=== PATIENT | female | born 1950 | race Caucasian/White ===

== ENCOUNTER 2017-09-11 12:19 | Inpatient (IN) ==
[2017-09-11] MEDS ORDERED: Ipratropium/Albuterol Neb 3 ML IH ONE (12:35)
[2017-09-11] MEDS ORDERED: Levofloxacin 750 MG/150 ML 750 MG/150 ML BAG IVPB ONE (12:35)
[2017-09-11] MEDS ORDERED: methylPREDNISolone 125 MG/2 ML VIAL IVP ONE (12:35)
--- NOTE | 2017-09-11 12:37 | Emergency Department Note ---
Disposition Clinical Impression: Hypoxia, Elevated lactic acid level, Elevated brain natriuretic peptide (BNP) level Asthma with exacerbation Qualifiers: Asthma severity: unspecified severity Asthma persistence: unspecified Qualified Code(s): J45.901 - Unspecified asthma with (acute) exacerbation Disposition: Admitted As Inpatient Condition: Fair SOB HPI - General Chief Complaint: ED Shortness of Breath/Dyspnea Stated Complaint: "cold" Time Seen by Provider: 09/11/17 12:25 Source: patient, family Limitations: no limitations Nursing Notes Reviewed: Yes Vital Signs Reviewed: Yes - History of Present Illness 66-year-old female past medical history of smoking, asthma, dependence on oxygen via nasal cannula, presents to the emergency department with 3 day history of cough and congestion. Patient states that she feels short of breath. She denies any fever, chest pain, pressure, tightness, hemoptysis, unilateral leg swelling, prior history of DVTs. - Related Data Allergies Allergy/AdvReac Type Severity Reaction Status Date / Time cephalexin [From Keflex] Allergy Anaphylaxis Verified 09/11/17 13:06 All systems ED: reviewed and negative except as stated. Review of Systems: As Per HPI ENT ED: Reports: congestion Cardiovascular: Denies: chest pain Respiratory: Reports: cough, dyspnea, wheezes. 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 Head: autraumatic, EOMI, no conjuncitval pallor, no scleral icterus, Mouth: oral mucous membranes moist Neck: neck soft, trachea midline Chest:: Equal chest wall rise Lungs: Diffuse wheezes and rhonchi throughout Heart: normal heart sounds, tachycardic and normal rhythm, Abdomen: soft, non-tender, no rigidity, no guarding, no rebdound tenderness Lower Extremities: no pedal edema, calves non-tender Integumentary: Skin warm, dry, and intact Neuro: Alert Psych: normal affect, normal mood - General Limitations: no limitations General appearance: alert, in no apparent distress Course Vital Signs Temperature 98.0 F 09/11/17 12:22 Pulse Rate 113 09/11/17 12:22 Respiratory Rate 22 09/11/17 12:22 Blood Pressure 158/84 09/11/17 12:22 O2 Sat by Pulse Oximetry 88 09/11/17 12:22 Temperature 98.0 F 09/11/17 12:22 Pulse Rate 108 09/11/17 15:35 Respiratory Rate 24 09/11/17 15:35 Blood Pressure 110/63 09/11/17 15:35 O2 Sat by Pulse Oximetry 93 09/11/17 15:35 Oxygen Delivery Oxygen Delivery Nasal Cannula Shortness of Breath/Dyspnea - MDM Narrative Medical decision making narrative: 66-year-old female presents to the emergency department with concern for asthma/ COPD exacerbation versus pneumonia. The patient is currently on 3 L of nasal cannula as she is at home. There are times where she is very dyspneic in conversation where her oxygen saturation stops down to the low 80s this patient steroids, DuoNeb, obtaining chest x-ray, EKG, BNP, troponin, CBC, BMP, blood cultures will be obtained as well as a lactate as this patient is tachycardic, hypoxic, tachypnic. I do not suspect a pulmonary embolus at this time as patient is not having chest pain, denies any hemoptysis, leg swelling, and has no previous history of blood clots. Findings were chest x-ray did not reveal pneumonia. However, due to the patient 's wet cough and hypoxia, history COPD, elevated leukocytosis, I have given her Levaquin as I do suspect that there may be a bacterial etiology. Patient has a troponin within normal limits. Her electrocardiogram does not reveal any ischemic ST changes. Patient does have an elevated BNP. Patient stated that she wanted to go home. However, patient was very dyspneic in conversation with oxygen saturation fluctuated between the high to low 80s on 3 L via nasal cannula. I think this patient should be admitted to the hospital for asthma/COPD exacerbation and bronchitis with hypoxia. After a discussion with family and patient bedside, she agreed to be admitted. I discussed the plan of admission with Dr. Cancino and he agreed to admit the patient. Chest X-Ray 09/11/17 12:35 IMPRESSION: Findings suggesting COPD with acute versus chronic bronchitis/bronchiolitis. No lobar pneumonia. D/ / 09/11/2017 13:37:40 Khris Carreno MD / Manasa Lopez Interpreting Provider: Khris Carreno MD Vital Signs Temperature 98.0 F 09/11/17 12:22 Pulse Rate 113 09/11/17 12:22 Respiratory Rate 22 09/11/17 12:22 Blood Pressure 158/84 09/11/17 12:22 O2 Sat by Pulse Oximetry 88 09/11/17 12:22 Temperature 98.0 F 09/11/17 12:22 Pulse Rate 108 09/11/17 15:35 Respiratory Rate 24 09/11/17 15:35 Blood Pressure 110/63 09/11/17 15:35 O2 Sat by Pulse Oximetry 93 09/11/17 15:35 Oxygen Delivery Oxygen Delivery Nasal Cannula - Lab Data Result diagrams: 09/11/17 12:47 09/11/17 12:47 Lab Results 09/11/17 09/11/17 09/11/17 Range/Units 12:47 12:47 12:47 WBC 13.4 H (4.3-11.1) K/mcL RBC 4.74 (3.82-4.97) M/mcL Hgb 13.5 (11.5-15.4) g/dL Hct 42.3 (35.3-44.9) % MCV 89.2 (83.0-100.0) fL MCH 28.5 (28.0-33.3) pg MCHC 31.9 (31.6-35.5) g/dL RDW 13.8 (11.5-14.5) % Plt Count 159 (140-400) K/mcL MPV 11.1 (9.4-12.4) fL Immature Gran % 0.4 (0-4) % Seg Neutrophils % 85.0 % Lymphocytes % 6.3 % Monocytes % 7.9 % Eosinophils % 0.1 % Basophils % 0.3 % Neutrophils # 11.4 H (1.6-8.9) K/mcL Lymphocytes # 0.8 (0.6-4.6) K/mcL Monocytes # 1.1 (0.0-1.3) K/mcL Eosinophils # 0.0 (0.0-0.6) K/mcL Basophils # 0.0 (0.0-0.2) K/mcL Sodium 136 (136-145) mEq/L Potassium 4.0 (3.5-4.5) mEq/L Chloride 101 (98-109) mEq/L Carbon Dioxide 25 (19-29) mEq/L BUN 11 (7-20) mg/dL Creatinine 0.77 (0.57-1.11) mg/dL Est GFR ( Amer) > 60 (> 60) Est GFR (Non-Af Amer) > 60 (> 60) BUN/Creatinine Ratio 14 (6-26) Glucose 125 H (70-99) mg/dL Calculated Osmolality 283 (280-300) Lactic Acid 2.2 (0.5-2.2) mmol/L Calcium 9.1 (8.6-10.8) mg/dL Troponin I (0-0.03) ng/mL B-Natriuretic Peptide (0-100) pg/mL 09/11/17 09/11/17 09/11/17 Range/Units 12:47 12:47 14:37 WBC (4.3-11.1) K/mcL RBC (3.82-4.97) M/mcL Hgb (11.5-15.4) g/dL Hct (35.3-44.9) % MCV (83.0-100.0) fL MCH (28.0-33.3) pg MCHC (31.6-35.5) g/dL RDW (11.5-14.5) % Plt Count (140-400) K/mcL MPV (9.4-12.4) fL Immature Gran % (0-4) % Seg Neutrophils % % Lymphocytes % % Monocytes % % Eosinophils % % Basophils % % Neutrophils # (1.6-8.9) K/mcL Lymphocytes # (0.6-4.6) K/mcL Monocytes # (0.0-1.3) K/mcL Eosinophils # (0.0-0.6) K/mcL Basophils # (0.0-0.2) K/mcL Sodium (136-145) mEq/L Potassium (3.5-4.5) mEq/L Chloride (98-109) mEq/L Carbon Dioxide (19-29) mEq/L BUN (7-20) mg/dL Creatinine (0.57-1.11) mg/dL Est GFR ( Amer) (> 60) Est GFR (Non-Af Amer) (> 60) BUN/Creatinine Ratio (6-26) Glucose (70-99) mg/dL Calculated Osmolality (280-300) Lactic Acid 3.0 H (0.5-2.2) mmol/L Calcium (8.6-10.8) mg/dL Troponin I 0.02 (0-0.03) ng/mL B-Natriuretic Peptide 133 H (0-100) pg/mL - EKG Data EKG attestation: Yes I reviewed and interpreted this EKG. EKG results narrative: 12:35 Ventricular rate 114 beats per minute, IL interval 120 ms, QRS duration 109 ms, QT 312 ms, QTC 380 ms, no masses. Sinus tachycardia with a ventricular rate of 114 bpm. There is no evidence of any ischemic ST changes noted on this electrocardiogram.
--- NOTE | 2017-09-11 12:38 | Emergency Department Note ---
START Narrative - START START: I examined this patient and my medical decision-making was reviewed with the Resident Physician. I agree with the documented findings, disposition and treatment plan as described except to the extent set forth below. 66 year old female with HX of COPD/asthma and needs oxygen supplemenaiton at home about 2-3LNC and has been wearing it continously and has been experincing increased dyspnea especially with exertion secondary to cold like sypmtomat and productive cough and subjective fevers. Patient on 2LNC at bedside is 88% and states that at baseline she is 90% always. PAtinet is also tachycardic to 120s. We will do sepsis protocol workup secondary to likely pnuemonia. LEvaquin, IVF and ADMIt to medicine.
[2017-09-11 12:53] LABS: Basophils % 0.3 %; Eosinophils % 0.1 %; Hematocrit 42.3 % (35.3-44.9); Hemoglobin 13.5 g/dL (11.5-15.4); Immature Granulocytes % 0.4 % (0-4); Lymphocytes # 0.8 K/mcL (0.6-4.6); Lymphocytes % 6.3 %; Mean Corpuscular HGB Conc 31.9 g/dL (31.6-35.5); Mean Corpuscular Hemoglobin 28.5 pg (28.0-33.3); Mean Corpuscular Volume 89.2 fL (83.0-100.0); Mean Platelet Volume 11.1 fL (9.4-12.4); Monocytes # 1.1 K/mcL (0.0-1.3); Monocytes % 7.9 %; Neutrophils # 11.4 K/mcL (1.6-8.9); Platelet Count 159 K/mcL (140-400); Red Blood Count 4.74 M/mcL (3.82-4.97); Red Cell Distribution Width 13.8 % (11.5-14.5)
[2017-09-11 13:08] LABS: BUN/Creatinine Ratio 14 (6-26); Blood Urea Nitrogen 11 mg/dL (7-20); Calcium 9.1 mg/dL (8.6-10.8); Carbon Dioxide 25 mEq/L (19-29); Chloride 101 mEq/L (98-109); Glucose 125 mg/dL (70-99); Osmolality,Calculated 283 (280-300); Sodium 136 mEq/L (136-145); eGFR For African Americans > 60 (> 60); eGFR For Non-African Americans > 60 (> 60)
[2017-09-11] MEDS ORDERED: 0.9 % Sodium Chloride 1,000 ML IVC ONE (13:46)
[2017-09-11] MEDS ORDERED: Albuterol Neb 7.5 MG, Sodium Chloride for inhalation 12 ML IH ONE ×2 (15:03→15:30)
--- NOTE | 2017-09-11 17:52 | Internal Med History&Physical ---
Date of Encounter: 09/11/17 Time of Encounter: 17:44 Assessment and Plan (1) COPD exacerbation Current visit: Yes Status: Acute 66/female Known to have asthma/COPD on home oxygen (as per ER documentation) Admitted with worsening shortness of breath. Has worsening cough and change in the sputum color. Plan: Admit as inpatient. Intravenous antibiotics. Intravenous steroids. Intravenous fluids as she has elevated lactic acid. Inhaled bronchodilators Close monitoring of the respiratory status I have examined this patient in the emergency room. Patient's was at bedside. Plan discussed with the patient and her . (2) Elevated lactic acid level Current visit: Yes Status: Acute Likely secondary to infection We will give antibiotics/IV fluids We will monitor lactic acid very closely (3) Elevated brain natriuretic peptide (BNP) level Current visit: Yes Status: Acute Repeat BNP tomorrow We will cycle troponin. We will get echocardiogram. (4) Morbid obesity Current visit: Yes Status: Acute Patient will benefit from bariatric surgery as outpatient. (5) DVT prophylaxis Current visit: Yes Status: Acute SCD Medical decision-making :this patient has a moderate to severe risk of worsening in spite of being on appropriate medication due to the underlying chronic comorbid conditions. Internal Medicine - H&P: HPI Chief complaint: Shortness of breath Admitted From: Emergency Dept Plans for Post Hospital Care: Home History of present illness: PCP: Indicating there is no documentation of PCP. Brief past medical history:asthma, COPD, myocardial infarction, moderate obesity History of present medical illness: This is a 66-year-old female who is known to have bronchial asthma on home oxygen comes with worsening shortness of breath along with 3 day history of cough and congestion. Patient claims that there is a change in sputum color and it is extremely difficult to walk even 15 steps. This worsening shortness of breath and persistent cough brought her to emergency room for further evaluation. Patient denies chest pain, nausea, vomiting, abdominal pain, dizziness and diarrhea. Workup in the emergency room: Patient was evaluated in the emergency room. Chest x-ray was suggestive of COPD changes along with possibility of early pneumonia. Basic labs were suggestive of elevated white blood cell count. Reason for admission: COPD exacerbation which needs intravenous antibiotics, close monitoring of respiratory status Family medical history: Noncontributory Past Med Surg Social Fam HX - Past Medical History Medical history: asthma, COPD, myocardial infarction Psychiatric history: no psych history - Past Surgical History Surgical History: hysterectomy - Social History Smoking Status: Former smoker Smokeless Tobacco Status: No Alcohol use: rarely Drug use: none Internal Medicine - H&P: Meds Aspirin [Lo-Dose Aspirin EC] 81 mg PO DAILY 09/11/17 [History] Ergocalciferol (VITAMIN D2) [Vitamin D2] 2,000 unit PO DAILY 09/11/17 [History] Fluticasone/Vilanterol [Breo Ellipta 100-25 Mcg INH] 1 each IH DAILY 09/11/17 [ History] [place]-3/Dha/Epa/Fish Oil [Fish Oil 500 mg Softgel] 1 each PO DAILY 09/11/17 [ History] Simvastatin [Zocor] 40 mg PO HS 09/11/17 [History] Spironolactone [Aldactone] 25 mg PO BID 09/11/17 [History] Tiotropium [Spiriva] 18 mcg IH DAILY 09/11/17 [History] Vitamin E (Dl,Tocopheryl Acet) [E-200] 200 unit PO DAILY 09/11/17 [History] 3 Allergy/AdvReac Type Severity Reaction Status Date / Time cephalexin [From Keflex] Allergy Anaphylaxis Verified 09/11/17 13:06 All Systems PM: A 10-system review of systems was performed and is negative for pertinent findings except as documented above in the HPI. - Constitutional Constitutional: no chills, no fever(s), no night sweats - EENT Eyes: no change in vision, no discharge, no pain, no photophobia Ears: no ear discharge, no ear pain, no tinnitus Nose, mouth and throat: no dysphagia, no nasal discharge, no neck pain, no sore throat - Cardiovascular Cardiovascular ROS IM: diaphoresis, dyspnea, no chest pain, no lightheadedness, no palpitations, no syncope - Respiratory Respiratory: cough, dyspnea, wheezing, excessive phlegm production, change in phlegm color - Gastrointestinal Gastrointestinal: no abdominal pain, no diarrhea, no hematemesis, no hematochezia, no melena, no nausea, no vomiting - Genitourinary Genitourinary: no change in urinary stream, no dysuria, no flank pain, no hematuria - Musculoskeletal Musculoskeletal ROS IM: no numbness, no tingling - Integumentary Integumentary IM: no rash, no unusual bruising - Neurological Neurological ROS: no confusion, no convulsions, no focal weakness, no numbness, no tingling, no tremor(s) - Hematologic/Lymphatic Hematologic/Lymphatic: no easy bruising - Constitutional Vitals: Temp Pulse Resp BP Pulse Ox 97.9 F 120 22 118/54 92 09/11/17 17:06 09/11/17 17:06 09/11/17 17:06 09/11/17 17:06 09/11/17 17:06 General appearance: Present: A&O X 3, pleasant, no acute distress, answers questions appropriately - Head Head exam: Present: atraumatic, normocephalic - Eye Eye exam: Present: PERRL, conjuntiva pink, sclera anicteric Pupils: Present: PERRL - Neck Neck exam general surgery: Present: supple, trachea midline. Absent: lymphadenopathy - Respiratory Respiratory exam: Present: CTAB, rhonchi, wheezes. Absent: accessory muscle use , rales - Cardiovascular Cardiovascular exam: Present: RRR, +S1, +S2. Absent: diastolic murmur, gallop, rubs, systolic murmur - GI/Abdominal GI/Abdominal exam: Present: normal bowel sounds, soft, no peritoneal signs. Absent: distended, tenderness - Extremities Exam Extremities exam: Present: warm, radial pulses palpable and symmetrical. Absent : calf tenderness, cyanotic, pedal edema - Neurological Exam Neurological exam: Present: CN II-XII intact, oriented X3, no focal deficits. Absent: pronater drift, facial droop, speech deficit - Skin Skin exam: Present: dry, intact Internal Med - H&P Results - Labs CBC & Chem 7: 09/11/17 12:47 09/11/17 12:47 Labs: Case discussed with the emergency room physician.
[2017-09-11] MEDS ORDERED: *HR* Morphine 2 MG/ML SYRINGE IVP PRN (18:31)
[2017-09-11] MEDS ORDERED: Naloxone 0.4 MG/ML INJ IVP PRN (18:31)
[2017-09-11] MEDS: Ipratropium/Albuterol Neb 3 ML IH SCH ×2 (19:44→23:11)
[2017-09-11] MEDS: Spironolactone 25 MG TABLET PO SCH (20:29)
[2017-09-11] MEDS: 0.9 % Sodium Chloride 1,000 ML IVC SCH (21:10)
[2017-09-12] MEDS: MethylPREDNISolone 40 MG/ML VIAL IVP SCH ×3 (00:28→15:41)
[2017-09-12 00:54] LABS: Basophils % 0.1 %; Hematocrit 38.5 % (35.3-44.9); Hemoglobin 12.6 g/dL (11.5-15.4); Immature Granulocytes % 0.9 % (0-4); Lymphocytes # 0.6 K/mcL (0.6-4.6); Lymphocytes % 4.9 %; Mean Corpuscular HGB Conc 32.7 g/dL (31.6-35.5); Mean Corpuscular Hemoglobin 29.2 pg (28.0-33.3); Mean Corpuscular Volume 89.1 fL (83.0-100.0); Mean Platelet Volume 11.3 fL (9.4-12.4); Monocytes # 0.3 K/mcL (0.0-1.3); Monocytes % 2.3 %; Neutrophils # 10.4 K/mcL (1.6-8.9); Platelet Count 169 K/mcL (140-400); Red Blood Count 4.32 M/mcL (3.82-4.97); Red Cell Distribution Width 13.8 % (11.5-14.5); Segmented Neutrophils % 91.8 %
[2017-09-12 00:59] LABS: INR 1.4; Prothrombin Time 14.8 Seconds (9.4-12.1)
[2017-09-12 01:01] LABS: Activated Partial Thrombo Time 28.4 Seconds (26.0-36.0)
[2017-09-12 01:09] LABS: Alanine Aminotransferase 17 Units/L (0-55); Albumin 2.8 g/dL (3.5-5.0); Albumin/Globulin Ratio 0.8 (1.1-2.2); Alkaline Phosphatase 85 Units/L (38-126); Aspartate Amino Transferase 12 Units/L (5-34); BUN/Creatinine Ratio 16 (6-26); Bilirubin,Total 0.3 mg/dL (0.2-1.2); Blood Urea Nitrogen 14 mg/dL (7-20); Carbon Dioxide 22 mEq/L (19-29); Chloride 106 mEq/L (98-109); Chol/HDL Ratio 2.6 (0-4.9); Cholesterol 136 mg/dL (< 200); Globulin 3.7 g/dL (2.4-3.5); Glucose 213 mg/dL (70-99); HDL Cholesterol 53 mg/dL (40-59); LDL Cholesterol,Calculated 69 mg/dL (0-99); Magnesium 2.1 mg/dL (1.6-2.6); Osmolality,Calculated 293 (280-300); Phosphorous 2.4 mg/dL (2.3-4.7); Potassium 3.8 mEq/L (3.5-4.5); Sodium 138 mEq/L (136-145); Total Protein 6.5 g/dL (6.0-8.3); Triglycerides 69 mg/dL (< 150); eGFR For African Americans > 60 (> 60); eGFR For Non-African Americans > 60 (> 60)
[2017-09-12] MEDS: Ipratropium/Albuterol Neb 3 ML IH SCH ×6 (03:54→23:39)
[2017-09-12] MEDS ORDERED: Albuterol 2.5 MG/3 ML NEBULIZER IH PRN (05:23)
[2017-09-12] MEDS: Aspirin Enteric Coated 81 MG Tablet PO SCH (08:05)
[2017-09-12] MEDS: Cholecalciferol (D-3) 1,000 UNIT TABLET PO SCH (08:05)
[2017-09-12] MEDS: Levofloxacin 750 MG/150 ML 750 MG/150 ML BAG IVPB SCH (08:05)
[2017-09-12] MEDS: Spironolactone 25 MG TABLET PO SCH ×2 (08:05→21:34)
[2017-09-12 08:59] LABS: ABG Base Excess 2 mEq/L (-2 to 3); ABG HCO3 27 mEq/L (21-27); ABG Oxygen Saturation 94 % (95-98); ABG PCO2 45 mmHg (35-45); ABG PH 7.39 pH Units (7.32-7.45); ABG PO2 70 mmHg (85-104); ABG TCO2 29 mEq/L (20-26)
[2017-09-12] MEDS ORDERED: Tiotropium 18 MCG inhalation IH SCH (09:00)
--- NOTE | 2017-09-12 09:35 | Internal Med Progress Note ---
Date of Encounter: 09/12/17 Time of Encounter: 09:32 - Assessment and plan (1) COPD exacerbation Current Visit: Yes Status: Acute Assessment and plan: Patient claims that she is feeling 30-40% better as compared to yesterday. Levofloxacin day 2. Intravenous steroids discontinued today. Initial bronchodilators to continue today. We will assess her progress very closely. We will get d-dimer today. If d-dimer is positive then we will go ahead with CTA chest to rule out pulmonary embolism. Events from last night worsening of oxygen desaturation noted. (2) Elevated lactic acid level Current Visit: Yes Status: Acute Assessment and plan: Patient lactic acid is back to normal. (3) Elevated brain natriuretic peptide (BNP) level Current Visit: Yes Status: Acute Assessment and plan: BNP is still elevated and not much difference as compared to yesterday. Rations 3 troponin are negative. We will get echocardiogram today. If the echocardiogram is within normal limits then we will consider stress test tomorrow. I will keep this patient nothing by mouth from midnight today (4) Morbid obesity Current Visit: Yes Status: Acute Assessment and plan: Patient will benefit from outpatient bariatric surgery. (5) DVT prophylaxis Current Visit: Yes Status: Acute Assessment and plan: SCD - Subjective Interval history: Patient seen and examined. Chart reviewed. Patient is comfortably lying in bed. Patient denies any shortness of breath or chest pain. Patient does have occasional cough and yellowish-white expectoration. - Constitutional Vitals: Temp Pulse Resp BP Pulse Ox 98.0 F 70 18 124/66 95 09/12/17 08:40 09/12/17 08:40 09/12/17 08:40 09/12/17 08:40 09/12/17 08:40 General appearance: Present: A&O X 3, pleasant, no acute distress, answers questions appropriately - Head Head exam: Present: atraumatic, normocephalic - Eye Eye exam: Present: PERRL, conjuntiva pink, sclera anicteric Pupils: Present: PERRL - Neck Neck exam general surgery: Present: supple, trachea midline. Absent: lymphadenopathy - Respiratory Respiratory exam: Present: CTAB, rhonchi, wheezes. Absent: accessory muscle use , rales - Cardiovascular Cardiovascular exam: Present: RRR, +S1, +S2. Absent: diastolic murmur, gallop, rubs, systolic murmur - GI/Abdominal GI/Abdominal exam: Present: normal bowel sounds, soft, no peritoneal signs. Absent: distended, tenderness - Extremities Exam Extremities exam: Present: warm, radial pulses palpable and symmetrical. Absent : calf tenderness, cyanotic, pedal edema - Neurological Exam Neurological exam: Present: CN II-XII intact, oriented X3, no focal deficits. Absent: pronater drift, facial droop, speech deficit - Skin Skin exam: Present: dry, intact Internal Medicine: Result - Labs CBC & Chem 7: 09/12/17 00:48 09/12/17 00:48 Labs: Short CBC 09/12/17 Range/Units 00:48 WBC 11.3 H (4.3-11.1) K/mcL Hgb 12.6 (11.5-15.4) g/dL Hct 38.5 (35.3-44.9) % Plt Count 169 (140-400) K/mcL Neutrophils # 10.4 H (1.6-8.9) K/mcL BMP 09/12/17 00:48 Sodium 138 Potassium 3.8 Chloride 106 Carbon Dioxide 22 BUN 14 Creatinine 0.89 Glucose 213 H Calcium 9.0 Cardiac Enzymes 09/11/17 09/12/17 09/12/17 Range/Units 19:13 00:48 03:08 Troponin I 0.02 0.02 0.01 (0-0.03) ng/mL Liver Function 09/12/17 Range/Units 00:48 Total Bilirubin 0.3 (0.2-1.2) mg/dL AST 12 (5-34) Units/L ALT 17 (0-55) Units/L Alkaline Phosphatase 85 (38-126) Units/L Albumin 2.8 L (3.5-5.0) g/dL - ABG Interpretation ABG results: ABG ABG pH 7.39 pH Units (7.32-7.45) 09/12/17 08:56 ABG pCO2 45 mmHg (35-45) 09/12/17 08:56 ABG pO2 70 mmHg (85-104) L 09/12/17 08:56 ABG O2 Saturation 94 % (95-98) L 09/12/17 08:56 PT/INR, D-dimer PT 14.8 Seconds (9.4-12.1) H 09/12/17 00:48 - VTE Documentation of Mechanical Device: Graduated compression elastic hosiery Consult Discharge Plan - Plan Referrals: NONE,PCP [Primary Care Provider] -
[2017-09-12] MEDS: 0.9 % Sodium Chloride 1,000 ML IVC SCH (15:40)
[2017-09-12] MEDS ORDERED: Acetaminophen 325 MG TABLET PO PRN (16:00)
[2017-09-13] MEDS: MethylPREDNISolone 40 MG/ML VIAL IVP SCH ×3 (00:03→18:34)
[2017-09-13] MEDS: Ipratropium/Albuterol Neb 3 ML IH SCH ×6 (03:38→23:20)
[2017-09-13] MEDS: 0.9 % Sodium Chloride 1,000 ML IVC SCH (05:17)
[2017-09-13] MEDS: Levofloxacin 750 MG/150 ML 750 MG/150 ML BAG IVPB SCH (08:40)
[2017-09-13] MEDS: Spironolactone 25 MG TABLET PO SCH ×2 (08:40→21:34)
[2017-09-13] MEDS: Aspirin Enteric Coated 81 MG Tablet PO SCH (08:40)
[2017-09-13] MEDS: Cholecalciferol (D-3) 1,000 UNIT TABLET PO SCH (08:40)
--- NOTE | 2017-09-13 16:02 | Internal Med Progress Note ---
Date of Encounter: 09/13/17 Time of Encounter: 15:57 - Assessment and plan (1) Acute respiratory failure with hypoxia Current Visit: Yes Status: Acute Assessment and plan: Likely Asthma or COPD exacerbation. Possibly has MARK/hypoventilation syndrome. Rule out CAD Breathing improved but not at baseline. Echocardiogram showed EF 60% with moderate diastolic dysfunction. CTa had poor visualization and could not effectively rule out PE. If suspicion of PE remains high after treating asthma/ copd, will get V/Q scan. Plan: Continue Levaquin Change steroid to PO Prednisone Duo Nebs Q3H - Respiratory cultures, procalcitonin, urine antigens Dobutamine stress test V/Q scan if suspicion of PE (2) Elevated lactic acid level Current Visit: Yes Status: Acute Assessment and plan: Patient lactic acid is back to normal. (3) Elevated brain natriuretic peptide (BNP) level Current Visit: Yes Status: Acute Assessment and plan: BNP is still elevated and not much difference as compared to BNP (133) on admission today is 143. Rations 3 troponin are negative. 2-D echo was done today and if again for EF 60%, normal wall thickness and function. Moderate LV diastolic dysfunction, normal RV function. We will follow up with a dobutamine stress test (4) DVT prophylaxis Current Visit: Yes Status: Acute Assessment and plan: SCD (5) Morbid obesity Current Visit: Yes Status: Acute - Subjective Interval history: States she is still feeling a little short of breath, symptoms have improved though. She admits to fevers prior to admission but she denies any current fevers. She does have cough with some sputum. Denies any nausea or vomiting, chest pain. - Constitutional Vitals: Temp Pulse Resp BP Pulse Ox 97.8 F 94 17 138/69 97 09/13/17 11:05 09/13/17 11:05 09/13/17 11:05 09/13/17 11:05 09/13/17 11:05 General appearance: Present: A&O X 3, pleasant, no acute distress, answers questions appropriately Exam: - Head Head exam: Present: atraumatic, normocephalic - Eye Eye exam: Present: PERRL, conjuntiva pink, sclera anicteric Pupils: Present: PERRL - Neck Neck exam general surgery: Present: supple, trachea midline. Absent: lymphadenopathy - Respiratory Respiratory exam: Present: CTAB, rhonchi, wheezes. Absent: accessory muscle use , rales - Cardiovascular Cardiovascular exam: Present: RRR, +S1, +S2. Absent: diastolic murmur, gallop, rubs, systolic murmur - GI/Abdominal GI/Abdominal exam: Present: normal bowel sounds, soft, no peritoneal signs. Absent: distended, tenderness - Extremities Exam Extremities exam: Present: warm, radial pulses palpable and symmetrical. Absent : calf tenderness, cyanotic, pedal edema - Neurological Exam Neurological exam: Present: CN II-XII intact, oriented X3, no focal deficits. Absent: pronater drift, facial droop, speech deficit - Skin Skin exam: Present: dry, intact Internal Medicine: Result - Labs CBC & Chem 7: 09/13/17 16:15 09/13/17 16:15 - ABG Interpretation ABG results: ABG ABG pH 7.39 pH Units (7.32-7.45) 09/12/17 08:56 ABG pCO2 45 mmHg (35-45) 09/12/17 08:56 ABG pO2 70 mmHg (85-104) L 09/12/17 08:56 ABG O2 Saturation 94 % (95-98) L 09/12/17 08:56 PT/INR, D-dimer PT 14.8 Seconds (9.4-12.1) H 09/12/17 00:48 D-Dimer 1260 ng/mLFEU (0-500) H 09/12/17 09:40 - Impressions Impressions Chest CTA 09/13/17 09:00 IMPRESSION: Somewhat limited examination for pulmonary embolism with no evidence of acute pulmonary embolism to the lobar level. Patchy bibasilar opacity, likely atelectasis. Superimposed pneumonia is a possibility in the appropriate clinical setting. There is a 7 x 5 mm nodule in the right middle lobe. Follow-up recommendations as below. Aortic valve calcifications. This finding can be seen in setting of aortic stenosis. RECOMMENDATIONS: Fleischner Society guidelines for follow-up and management of incidentally detected pulmonary nodules: Single Solid Nodule: Nodule size equals 6-8 mm In a low-risk patient, CT at 6-12 months, then consider CT at 18-24 months. In a high-risk patient, CT at 6-12 months, then CT at 18-24 months. - Low risk patients include individuals with minimal or absent history of smoking and other known risk factors. - High risk patients include individuals with a history or smoking or known risk factors. Radiology 2017 http://pubs.rsna.org/doi/full/10.1148/radiol.[email or web address] D/ / 09/13/2017 12:51:26 Michael Bose MD / Manasa Lopez Interpreting Provider: Michael Bose MD - VTE Documentation of Mechanical Device: Graduated compression elastic hosiery Consult Discharge Plan - Plan Referrals: NONE,PCP [Primary Care Provider] -
[2017-09-13 16:32] LABS: Basophils % 0.2 %; Hemoglobin 12.6 g/dL (11.5-15.4); Immature Granulocytes % 2.4 % (0-4); Lymphocytes % 7.8 %; Mean Corpuscular HGB Conc 32.3 g/dL (31.6-35.5); Mean Corpuscular Hemoglobin 29.1 pg (28.0-33.3); Mean Corpuscular Volume 90.1 fL (83.0-100.0); Mean Platelet Volume 11.1 fL (9.4-12.4); Monocytes # 0.8 K/mcL (0.0-1.3); Neutrophils # 11.1 K/mcL (1.6-8.9); Platelet Count 209 K/mcL (140-400); Red Blood Count 4.33 M/mcL (3.82-4.97); Red Cell Distribution Width 14.1 % (11.5-14.5); Segmented Neutrophils % 83.6 %
[2017-09-13 16:44] LABS: BUN/Creatinine Ratio 32 (6-26); Carbon Dioxide 24 mEq/L (19-29); Chloride 108 mEq/L (98-109); Glucose 163 mg/dL (70-99); Osmolality,Calculated 298 (280-300); Potassium 4.2 mEq/L (3.5-4.5); Sodium 140 mEq/L (136-145); eGFR For African Americans > 60 (> 60); eGFR For Non-African Americans > 60 (> 60)
[2017-09-13 16:46] LABS: Blood Urea Nitrogen 25 mg/dL (7-20)
[2017-09-13] MEDS: Famotidine 20 MG TABLET PO SCH ×2 (18:37→21:34)
[2017-09-14] MEDS: Ipratropium/Albuterol Neb 3 ML IH SCH ×5 (04:24→20:59)
[2017-09-14 06:49] LABS: Basophils % 0.2 %; Hematocrit 39.9 % (35.3-44.9); Hemoglobin 12.6 g/dL (11.5-15.4); Immature Granulocytes % 1.7 % (0-4); Lymphocytes # 2.1 K/mcL (0.6-4.6); Lymphocytes % 17.7 %; Mean Corpuscular HGB Conc 31.6 g/dL (31.6-35.5); Mean Corpuscular Hemoglobin 28.9 pg (28.0-33.3); Mean Corpuscular Volume 91.5 fL (83.0-100.0); Mean Platelet Volume 10.9 fL (9.4-12.4); Monocytes # 1.5 K/mcL (0.0-1.3); Monocytes % 12.5 %; Neutrophils # 7.9 K/mcL (1.6-8.9); Platelet Count 193 K/mcL (140-400); Red Blood Count 4.36 M/mcL (3.82-4.97); Red Cell Distribution Width 14.2 % (11.5-14.5); Segmented Neutrophils % 67.9 %
[2017-09-14 06:58] LABS: BUN/Creatinine Ratio 28 (6-26); Blood Urea Nitrogen 24 mg/dL (7-20); Calcium 8.7 mg/dL (8.6-10.8); Carbon Dioxide 27 mEq/L (19-29); Chloride 109 mEq/L (98-109); Glucose 110 mg/dL (70-99); Osmolality,Calculated 297 (280-300); Sodium 141 mEq/L (136-145); eGFR For African Americans > 60 (> 60); eGFR For Non-African Americans > 60 (> 60)
[2017-09-14] MEDS ORDERED: Pantoprazole 40 MG VIAL IVP SCH (09:00)
[2017-09-14] MEDS: predniSONE 20 MG TABLET PO SCH (09:38)
[2017-09-14] MEDS: Cholecalciferol (D-3) 1,000 UNIT TABLET PO SCH (09:38)
[2017-09-14] MEDS: Aspirin Enteric Coated 81 MG Tablet PO SCH (09:38)
[2017-09-14] MEDS: Spironolactone 25 MG TABLET PO SCH ×2 (09:38→20:19)
[2017-09-14] MEDS: Levofloxacin 750 MG/150 ML 750 MG/150 ML BAG IVPB SCH (09:39)
[2017-09-14] MEDS: Famotidine 20 MG TABLET PO SCH ×3 (09:47→20:19)
--- NOTE | 2017-09-14 18:06 | Internal Med Progress Note ---
Date of Encounter: 09/14/17 Time of Encounter: 13:11 - Assessment and plan (1) Acute respiratory failure with hypoxia Current Visit: Yes Status: Acute Assessment and plan: Likely Asthma or COPD exacerbation. Likely MARK/hypoventilation syndrome compenent as well, seen on overnight sleep study 09/13. Breathing improved and near baseline. Echocardiogram showed EF 60% with moderate diastolic dysfunction. CTa had some regions not clear, but was negative for PE. Will rule out CAD. Plan: - Continue Levaquin, Prednisone - Duo Nebs Q3H - Respiratory cultures, procalcitonin, urine antigens - Dobutamine stress test tomorrow Okay to discharge home tomorrow if stress test negative. May need Cardiology consult depending on stress results. May benefit from Pulmonology follow-up as outpatient. (2) Elevated lactic acid level Current Visit: Yes Status: Resolved Assessment and plan: Patient lactic acid is back to normal. (3) Elevated brain natriuretic peptide (BNP) level Current Visit: Yes Status: Acute Assessment and plan: BNP is still elevated and not much difference as compared to BNP (133) on admission today is 143. Rations 3 troponin are negative. 2-D echo was done today and if again for EF 60%, normal wall thickness and function. Moderate LV diastolic dysfunction, normal RV function. We will follow up with a dobutamine stress test (4) DVT prophylaxis Current Visit: Yes Status: Acute Assessment and plan: SCD (5) Morbid obesity Current Visit: Yes Status: Acute Assessment and plan: Overnight sleep study done showed patient would benefit from a sleep study. Likely MARK from obesity. - Subjective Interval history: Breathing is better. Denies chest pain, n/v, cough/sputum, fevers/chills. - Constitutional Vitals: Temp Pulse Resp BP Pulse Ox 97.4 F L 87 28 153/78 87 09/14/17 15:30 09/14/17 15:30 09/14/17 15:48 09/14/17 15:30 09/14/17 15:48 General appearance: Present: A&O X 3, pleasant, no acute distress, answers questions appropriately Exam: - Head Head exam: Present: atraumatic, normocephalic - Eye Eye exam: Present: PERRL, conjuntiva pink, sclera anicteric Pupils: Present: PERRL - Neck Neck exam general surgery: Present: supple, trachea midline. Absent: lymphadenopathy - Respiratory Respiratory exam: Present: CTAB, rhonchi, wheezes. Absent: accessory muscle use , rales - Cardiovascular Cardiovascular exam: Present: RRR, +S1, +S2. Absent: diastolic murmur, gallop, rubs, systolic murmur - GI/Abdominal GI/Abdominal exam: Present: normal bowel sounds, soft, no peritoneal signs. Absent: distended, tenderness - Extremities Exam Extremities exam: Present: warm, radial pulses palpable and symmetrical. Absent : calf tenderness, cyanotic, pedal edema - Neurological Exam Neurological exam: Present: CN II-XII intact, oriented X3, no focal deficits. Absent: pronater drift, facial droop, speech deficit - Skin Skin exam: Present: dry, intact Internal Medicine: Result - Labs CBC & Chem 7: 09/14/17 06:37 09/14/17 06:37 Labs: Short CBC 09/14/17 Range/Units 06:37 WBC 11.7 H (4.3-11.1) K/mcL Hgb 12.6 (11.5-15.4) g/dL Hct 39.9 (35.3-44.9) % Plt Count 193 (140-400) K/mcL Neutrophils # 7.9 (1.6-8.9) K/mcL BMP 09/14/17 06:37 Sodium 141 Potassium 4.0 Chloride 109 Carbon Dioxide 27 BUN 24 H Creatinine 0.87 Glucose 110 H Calcium 8.7 - ABG Interpretation ABG results: ABG ABG pH 7.39 pH Units (7.32-7.45) 09/12/17 08:56 ABG pCO2 45 mmHg (35-45) 09/12/17 08:56 ABG pO2 70 mmHg (85-104) L 09/12/17 08:56 ABG O2 Saturation 94 % (95-98) L 09/12/17 08:56 PT/INR, D-dimer PT 14.8 Seconds (9.4-12.1) H 09/12/17 00:48 D-Dimer 1260 ng/mLFEU (0-500) H 09/12/17 09:40 - VTE Documentation of Mechanical Device: Graduated compression elastic hosiery Consult Discharge Plan - Plan Referrals: NONE,PCP [Primary Care Provider] -
[2017-09-15] MEDS: Ipratropium/Albuterol Neb 3 ML IH SCH ×5 (00:38→15:32)
[2017-09-15 04:28] LABS: Basophils % 0.4 %; Hemoglobin 12.1 g/dL (11.5-15.4); Immature Granulocytes % 3.6 % (0-4); Lymphocytes # 1.8 K/mcL (0.6-4.6); Lymphocytes % 19.5 %; Mean Corpuscular HGB Conc 31.8 g/dL (31.6-35.5); Mean Corpuscular Hemoglobin 28.6 pg (28.0-33.3); Mean Corpuscular Volume 89.8 fL (83.0-100.0); Mean Platelet Volume 10.9 fL (9.4-12.4); Monocytes % 11.5 %; Neutrophils # 5.9 K/mcL (1.6-8.9); Platelet Count 191 K/mcL (140-400); Red Blood Count 4.23 M/mcL (3.82-4.97); Red Cell Distribution Width 13.9 % (11.5-14.5)
[2017-09-15 04:37] LABS: BUN/Creatinine Ratio 23 (6-26); Blood Urea Nitrogen 17 mg/dL (7-20); Calcium 8.8 mg/dL (8.6-10.8); Carbon Dioxide 29 mEq/L (19-29); Chloride 105 mEq/L (98-109); Glucose 109 mg/dL (70-99); Osmolality,Calculated 288 (280-300); Potassium 3.9 mEq/L (3.5-4.5); Sodium 138 mEq/L (136-145); eGFR For African Americans > 60 (> 60); eGFR For Non-African Americans > 60 (> 60)
[2017-09-15] MEDS ORDERED: levoFLOXacin 750 MG TABLET PO SCH (10:45)
[2017-09-15] MEDS: Cholecalciferol (D-3) 1,000 UNIT TABLET PO SCH (10:59)
[2017-09-15] MEDS: predniSONE 20 MG TABLET PO SCH (10:59)
[2017-09-15] MEDS: Aspirin Enteric Coated 81 MG Tablet PO SCH (10:59)
[2017-09-15] MEDS: Spironolactone 25 MG TABLET PO SCH (10:59)
--- NOTE | 2017-09-15 13:41 | Discharge Summary ---
Date of Encounter: 09/15/17 Time of Encounter: 13:37 - Discharge Diagnosis (1) Acute respiratory failure with hypoxia Priority: Primary Status: Acute (2) Elevated lactic acid level Priority: Secondary Status: Resolved (3) Elevated brain natriuretic peptide (BNP) level Priority: Secondary Status: Acute (4) DVT prophylaxis Priority: Secondary Status: Acute (5) Morbid obesity Priority: Secondary Status: Chronic - Discharge Medications Prescriptions: GuaiFENesin ER [Mucinex] 600 mg PO BID PRN #10 tbbp.12hr PRN Reason: Congestion levoFLOXacin [Levaquin] 750 mg PO DAILY #4 tablet Home Medications: Aspirin [Lo-Dose Aspirin EC] 81 mg PO DAILY 09/11/17 [History] Ergocalciferol (VITAMIN D2) [Vitamin D2] 2,000 unit PO DAILY 09/11/17 [History] [place]-3/Dha/Epa/Fish Oil [Fish Oil 500 mg Softgel] 1 each PO DAILY 09/11/17 [ History] Simvastatin [Zocor] 40 mg PO HS 09/11/17 [History] Spironolactone [Aldactone] 25 mg PO BID 09/11/17 [History] Tiotropium [Spiriva] 18 mcg IH DAILY 09/11/17 [History] Vitamin E (Dl,Tocopheryl Acet) [E-200] 200 unit PO DAILY 09/11/17 [History] Fluticasone/Vilanterol [Breo Ellipta 200-25 Mcg INH] 1 puff IH BID 09/12/17 [ History] GuaiFENesin ER [Mucinex] 600 mg PO BID PRN #10 tbbp.12hr 09/15/17 [Rx] levoFLOXacin [Levaquin] 750 mg PO DAILY #4 tablet 09/15/17 [Rx] Allergies/Adverse Reactions: 3 Allergy/AdvReac Type Severity Reaction Status Date / Time cephalexin [From Keflex] Allergy Anaphylaxis Verified 09/11/17 13:06 Procedures/tests Complete & Pending: Procedures Performed prior 72 hours Category Date Time Status CTA chest [CT angio chest] [CT] Routine Cat Scan 09/13/17 09:00 Draft EV dobutamine stress echo Routine Y 09/15/17 Completed EV echocardiogram Routine Y 09/12/17 18:33 Completed Date of admission: 09/11/17 18:31 Primary care physician: PCP NONE Discharging clinician: Irineo Childers - Patient Status Disposition: Home, Self-Care Condition: Fair Functional capacity at discharge: independent ambulation Overall status at discharge: patient is back to baseline - Discharge Instructions Follow Up With: NONE,PCP [Primary Care Provider] - - Diet and Activity Activity: ambulate only with your walker, increase activity as tolerated Diet: advance to your usual diet Hospital course: Ms. Moody is a 66 year old female History of present medical illness: This is a 66-year-old female who is known to have bronchial asthma on home oxygen comes with worsening shortness of breath along with 3 day history of cough and congestion. Patient claims that there is a change in sputum color and it is extremely difficult to walk even 15 steps. This worsening shortness of breath and persistent cough brought her to emergency room for further evaluation. Patient denies chest pain, nausea, vomiting, abdominal pain, dizziness and diarrhea. Sh needs oxygen supplemenaiton at home about 2-3LNC and has been wearing it continously and has been experincing increased dyspnea especially with exertion secondary to cold like sypmtomat and productive cough and subjective fevers. Patient was on 2LNC at bedside is 88% and states that at baseline she is 90% always. Patinet was also tachycardic to 120s. A sepsis protocol workup was done secondary to likely pnuemonia. Workup in the emergency room: Patient was evaluated in the emergency room. Chest x-ray was suggestive of COPD changes along with possibility of early pneumonia. Basic labs were suggestive of elevated white blood cell count. She was given Levaquin , IVF, corticosteroids and was admitted for acute respiratory failure and monitoring for potential sepsis. Had elevated lactic acid levels likely secondary to infection and was monitored with after given IV fluids. She also had elevated BNP levels and so that was trended and so was troponin. She had a d-dimer and CTA done of the chest to rule out PE. The CTA did have some areas of poor visualization but otherwise was negative for pulmonary embolism. Gastric acid resolved. Her troponins were cycled 3 and were negative. An echocardiogram was done showing a left ventricular ejection fraction 60% with moderate diastolic dysfunction. She had a dobutamine stress test done that was negative for ischemia. She was discharged home in stable condition to finish Levaquin for additional 4 days. She finished a 5 day burst while was here and so no steroids were given. Note she was given an overnight sleep study for suspicion of obstructive sleep apnea. Results indicated that she would benefit from a sleep study. He is encouraged a follow-up with her primary care physician in regards to that - Time Spent with Patient Total time spent providing and/or coordinating discharge services: - Constitutional Vitals: Temp Pulse Resp BP Pulse Ox 97.7 F 94 16 133/60 90 09/15/17 11:38 09/15/17 11:38 09/15/17 11:38 09/15/17 11:38 09/15/17 11:38 General appearance: Present: A&O X 3, pleasant, no acute distress, answers questions appropriately Exam: - Head Head exam: Present: atraumatic, normocephalic - Eye Eye exam: Present: PERRL, conjuntiva pink, sclera anicteric Pupils: Present: PERRL - Neck Neck exam general surgery: Present: supple, trachea midline. Absent: lymphadenopathy - Respiratory Respiratory exam: Present: CTAB, rhonchi, wheezes. Absent: accessory muscle use , rales - Cardiovascular Cardiovascular exam: Present: RRR, +S1, +S2. Absent: diastolic murmur, gallop, rubs, systolic murmur - GI/Abdominal GI/Abdominal exam: Present: normal bowel sounds, soft, no peritoneal signs. Absent: distended, tenderness - Extremities Exam Extremities exam: Present: warm, radial pulses palpable and symmetrical. Absent : calf tenderness, cyanotic, pedal edema - Neurological Exam Neurological exam: Present: CN II-XII intact, oriented X3, no focal deficits. Absent: pronater drift, facial droop, speech deficit - Skin Skin exam: Present: dry, intact - VTE Documentation of Mechanical Device: Graduated compression elastic hosiery
[2017-09-15 15:07] VITALS: BP 111/54
--- NOTE | 2017-09-15 16:55 | Electrocardiograph Report ---
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
[2017-09-16 15:09] LABS: Procalcitonin <0.07 ng/mL (<=0.10)
[2017-09-17 12:45] LABS: Mycoplasma pneumoniae IgG 0.22 U/L (<=0.09)
== END 2017-09-15 17:00 | disposition home or self-care (01) | DRG 190 ==
LOC: 2ANU 12:19 → EMEROO 12:19 → 2ANU 16:43
PROVIDERS: ADMIT Internal Medicine; ATTEND Internal Medicine